=== PATIENT | female | born 1970 | race Caucasian/White ===

== ENCOUNTER 2020-04-19 09:23 | Outpatient (CLI) | payer BC ==
--- NOTE | 2020-04-19 12:18 | RAD ---
LUMBAR SPINE THREE VIEWS: History: Lumbar radiculopathy, low back pain FINDINGS: Lumbar vertebrae maintain normal height and alignment. Disc spaces are preserved. Mild facet hypertro phy. No evidence of spondylolisthesis. Alignment is preserved with flexion and extension. IMPRESSION: Mild facet hypertrophy. Minimal spurring from the lumbar vertebrae. POS: AH
--- NOTE | 2020-04-19 12:29 | MRI ---
MRI LUMBAR SPINE WITHOUT CONTRAST: Indications: Lumbar radiculopathy FINDINGS: The lumbar vertebrae maintain normal height and alignment. Vertebral bodies are normally preserved. T he disc spaces are normally maintained and exhibit normal T2 signal. Mild degenerative spurring is se en from the lumbar vertebrae. L1-2: Very mild disc bulge abuts the anterior thecal sac. Mild facet arthrosis. No central canal or f oraminal stenosis. L2-3: Normal disc bulge. Mild facet arthrosis. No central canal or foraminal stenosis. L3-4: No significant disc bulge. Mild facet arthrosis. No central canal or foraminal stenosis. L4-5: No significant disc bulge. Mild facet arthrosis. No central canal or foraminal stenosis. L5-S1: No disc bulge or protrusion. Normal facet arthrosis. No central canal or foraminal stenosis. IMPRESSION: Unremarkable MRI of lumbar spine. No significant disc bulge or disc protrusion seen at individual lum bar levels. There is mild facet arthrosis throughout. Mild degenerative spurring from the lumbar vert ebrae. POS: LICO
== END 2020-04-19 09:24 | disposition home or self-care (01) ==
LOC: TBSIIMAG 09:23
PROVIDERS: ATTEND Nurse Practitioner Family
DX: M47.26 Other spondylosis with radiculopathy, lumbar region (principal); M77.8 Other enthesopathies, not elsewhere classified
CPT/HCPCS: 72100; 72148